=== PATIENT | female | born 1940 | race Caucasian/White ===

== ENCOUNTER → 2017-07-04 | Outpatient (CLI) | payer OTHER ==
[~2017-07-04] MED LIST: ADULT LOW DOSE81 MG PO; ADVAIR 250-501 EACH INH; ASPIRIN EC81 M1 PO; CITRACAL + BON1 EACH PO; COLACE100 MG PO; DIOVAN320 MG PO; FISH OIL 1,0001 EAC5 PO; GLIPIZIDE 10 MG10 MG PO; HYDROCHLOROTH12.5 MG PO; HYDROCHLOROTHIA25 M1 PO; K-DUR 20 MEQ T20 MEQ PO; LIPITOR80 MG PO; MEGA MULTI FOR1 EAC1; METFORMIN HCL500 M2 PO; NORVASC10 MG PO; OMEPRAZOLE 20 M20 M1 PO; PROTONIX40 M2; STOOL SOFTENER50 MG; VITAMIN D1000 UNI1 PO
== END ==
LOC: ULTRA 14:46
DX: M79.89 Other specified soft tissue disorders (principal)

== ENCOUNTER → 2017-11-26 | Outpatient (CLI) | payer OTHER | LOC: NUC 08:49 | DX: Z13.820 Encounter for screening for osteoporosis (principal); M85.88 Other specified disorders of bone density and structure, other site ==

== ENCOUNTER 2018-09-21 11:06 | Emergency (ER) | payer OTHER ==
[~2018-09-21] VITALS: Ht 162.6 cm; Wt 57.6 kg
[~2018-09-21 11:06] MED LIST changes: +ATORVASTATIN CA40 MG PO; +AVAPRO300 MG PO; +BAYER BACK & B1 EACH PO; +HYDROCHLOROTH12.5 M1 PO; +LANSOPRAZOLE30 MG PO; +LINZESS72 MCG PO; +MAGOX 400400 MG PO; +METFORMIN HCL500 MG PO; +NORVASC5 MG PO
[2018-09-21 11:29] LABS: URINE COLOR YELLOW
[2018-09-21 11:30] LABS: URINE BILIRUBIN NEGATIVE (Negative); URINE BLOOD NEGATIVE (Negative); URINE CLARITY CLEAR; URINE GLUCOSE-RANDOM* NEGATIVE (Negative); URINE KETONES NEGATIVE (Negative); URINE LEUKOCYTES-REFLEX 1+ (Negative); URINE NITRITE-REFLEX NEGATIVE (Negative); URINE PROTEIN (DIPSTICK) NEGATIVE (Negative); URINE SPECIFIC GRAVITY 1.015 (1.005-1.035); URINE UROBILINOGEN 0.2 E.U./dl (0.2-1.0)
[2018-09-21 11:40] LABS: CASTS None Seen /LPF (None Seen); CRYSTALS None Seen /LPF (None Seen); SQUAMOUS 0-3 Few /LPF (0-3); URINE WBC-REFLEX 0-5 Rare /HPF (0-5)
[2018-09-21 11:41] LABS: BACTERIA-REFLEX 1-9 Few /HPF (None Seen); URINE RBC None Seen /HPF (0-2)
[2018-09-21 11:55] LABS: ABSOLUTE NEUTROPHILS 7.4 thou/uL (1.4-8.2); BASOPHILS 0.8 % (0.0-2.0); EOSINOPHILS 1.7 % (0.0-3.0); HEMATOCRIT 37.4 % (37.0-47.0); HEMOGLOBIN 12.7 gm/dL (12.0-15.0); MCH 29.5 pg (26.0-34.0); MCHC 33.9 g/dL (28.0-37.0); MONOCYTES 6.1 % (1.0-8.0); PLATELET COUNT 225 thou/uL (150-400); POLYS 75.4 % (36.0-66.0); RDW 14.6 % (10.5-14.5); WBC 9.9 thou/uL (4.0-11.0)
[2018-09-21 12:31] LABS: ALBUMIN 3.3 g/dL (3.4-5.0); CALCIUM 8.9 mg/dL (8.5-10.1); POTASSIUM 3.3 mmol/L (3.5-5.1); TOTAL BILIRUBIN 0.2 mg/dL (<0.1-1.0); TOTAL PROTEIN 6.3 g/dL (6.4-8.2)
[2018-09-21] MEDS ORDERED: GABAPENTIN 100100 MG PO (13:35)
[2018-09-21] MEDS ORDERED: VENTOLIN HFA 1818 GM INH (13:36)
[2018-09-21] MEDS ORDERED: COLACE100 MG PO (13:36)
[2018-09-21] MEDS ORDERED: AZELASTINE NASAL (13:41)
[2018-09-21] MEDS ORDERED: NAPHCON-A EYE D15 ML OPHTHALMIC (13:42)
[2018-09-21] MEDS ORDERED: ZADITOR5 M1 OPHTHALMIC (13:43)
[2018-09-21 17:31] VITALS: BP 153/87
== END 2018-09-21 17:34 | disposition short-term general hospital (02) ==
LOC: ER 11:06
PROVIDERS: Emergency Medicine
DX: M54.42 Lumbago with sciatica, left side (principal); N28.89 Other specified disorders of kidney and ureter; R20.2 Paresthesia of skin; R11.0 Nausea; E11.9 Type 2 diabetes mellitus without complications; I10 Essential (primary) hypertension; J45.909 Unspecified asthma, uncomplicated; E78.00 Pure hypercholesterolemia, unspecified; K21.9 Gastro-esophageal reflux disease without esophagitis; Z88.1 Allergy status to other antibiotic agents; Z90.710 Acquired absence of both cervix and uterus; Z88.8 Allergy status to other drugs, medicaments and biological substances

== ENCOUNTER → 2019-02-09 | Outpatient (CLI) | payer OTHER ==
[~2019-02-09] MED LIST changes: +AZELASTINE NASAL; +GABAPENTIN 100100 MG PO; +NAPHCON-A EYE D15 ML OPHTHALMIC; +VENTOLIN HFA 1818 GM INH; +ZADITOR5 M1 OPHTHALMIC
== END ==
LOC: RAD 14:50
DX: R06.02 Shortness of breath (principal); J45.909 Unspecified asthma, uncomplicated

== ENCOUNTER 2019-04-02 01:40 | Emergency (ER) | payer OTHER ==
[~2019-04-02] VITALS: Ht 162.6 cm; Wt 52.6 kg
[~2019-04-02 01:40] MED LIST changes: -ATORVASTATIN CA40 MG PO; +LIPITOR40 MG PO
[2019-04-02] MEDS ORDERED: LOPRESSOR25 PO (01:55)
[2019-04-02 02:25] LABS: BASOPHILS 1.2 % (0.0-2.0); EOSINOPHILS 2.6 % (0.0-3.0); HEMATOCRIT 33.3 % (37.0-47.0); MCH 28.3 pg (26.0-34.0); MCHC 33.1 g/dL (28.0-37.0); MCV 85.5 fL (80.0-100.0); MONOCYTES 8.4 % (1.0-8.0); PLATELET COUNT 176 thou/uL (150-400); POLYS 60.8 % (36.0-66.0); RDW 13.8 % (10.5-14.5); WBC 6.6 thou/uL (4.0-11.0)
[2019-04-02 02:34] LABS: URINE BILIRUBIN NEGATIVE (Negative); URINE BLOOD TRACE (Negative); URINE CLARITY CLEAR; URINE COLOR YELLOW; URINE GLUCOSE-RANDOM* NEGATIVE (Negative); URINE KETONES NEGATIVE (Negative); URINE LEUKOCYTES-REFLEX NEGATIVE (Negative); URINE NITRITE-REFLEX NEGATIVE (Negative); URINE PROTEIN (DIPSTICK) NEGATIVE (Negative); URINE UROBILINOGEN 0.2 E.U./dl (0.2-1.0)
[2019-04-02 02:35] LABS: CALCIUM 9.2 mg/dL (8.5-10.1); CREATININE 1.4 mg/dL (0.6-1.0); POTASSIUM 3.4 mmol/L (3.5-5.1)
[2019-04-02 02:37] LABS: APTT 21.5 Seconds (24.5-32.8); PROTIME 9.9 Seconds (9.3-11.4)
[2019-04-02 02:41] LABS: ALBUMIN 3.5 g/dL (3.4-5.0); DIRECT BILIRUBIN 0.1 mg/dL (<0.1-0.3); TOTAL BILIRUBIN 0.3 mg/dL (<0.1-1.0); TOTAL PROTEIN 7.2 g/dL (6.4-8.2)
[2019-04-02 06:04] VITALS: BP 142/64
--- NOTE | 2019-04-04 18:10 | EKG ---
[address] [address] ELECTROCARDIOGRAM REPORT Name: TERESITA MERCADO ERIC Room #: DEP [facility]#: [id number] ������������������ Admission: 04/02/19 ������������������ Attend Phys: Discharge: 04/02/19 ������������������ Date of : 44 Report #: [id number] ����������������������������������������������������������������� [id number] THIS REPORT FOR: //name// [facility] ED Test Date: 2019-04-02 Test Time: 01:54:18 Pat Name: TERESITA MERCADO Department: Room: Gender: F Application Security Engineer: ZE : [id number] Requested By: Brandi Granados Order Number: [id number] MD: Nixon Dinero Measurements Intervals [place] Rate: 54 P: 50 PA: 149 QRS: 19 QRSD: 84 T: 31 QT: 466 QTc: 442 Interpretive Statements Sinus bradycardia Atrial premature complex Compared to ECG 05/04/2013 08:15:48 Atrial premature complex(es) now present Electronically Signed On 04-04-2019 18:10:15 CDT by Nixon Dinero [email or web address] ��������������������������������������������� <ELECTRONICALLY SIGNED> ���������������������������������������� By: Nixon Dinero MD, [facility] ��������������������������������������������� 04/04/19 1810 [id number] Nixon Dinero MD, [facility] /EPI
== END 2019-04-02 06:05 | disposition home or self-care (01) ==
LOC: ER 01:40
PROVIDERS: Emergency Medicine
DX: I95.1 Orthostatic hypotension (principal); E11.9 Type 2 diabetes mellitus without complications; I10 Essential (primary) hypertension; J45.909 Unspecified asthma, uncomplicated; E78.00 Pure hypercholesterolemia, unspecified; K21.9 Gastro-esophageal reflux disease without esophagitis; Z88.1 Allergy status to other antibiotic agents; Z88.8 Allergy status to other drugs, medicaments and biological substances; Z90.710 Acquired absence of both cervix and uterus